=== PATIENT | female | born 1965 | race Caucasian/White ===

== ENCOUNTER 2018-09-22 17:44 | Emergency (ER) | payer MEDICARE, MEDICAID ==
[~2018-09-22] VITALS: Ht 160 cm; Wt 77.1 kg
[~2018-09-22 17:44] MED LIST: CALC625T20 PO; CYCL10TA2 PO; DOCU-109 PO; HYDR-2762 PO; HYDR-971 PO; LEVO137T3 PO; ONDA4TAB12 PO; PANT40TA3 PO; POLY17PO29 PO; TRAZ-86 PO
[2018-09-22 18:15] VITALS: BP 140/90
[2018-09-22] MEDS ORDERED: ONDANSETRON PF 4 MG/2 ML VIAL. IV ONE (18:30)
[2018-09-22] MEDS ORDERED: IV NORMAL SALINE 1000ML BAG 1,000 ML IV ONE (18:30)
[2018-09-22] MEDS ORDERED: IOHEXOL 300 MG/ML 100ML VIAL. IV ONE (18:30)
[2018-09-22] MEDS ORDERED: MORPHINE SULFATE 10 MG/ML VIAL. IV ONE (18:30)
[2018-09-22 18:34] LABS: BASO % 1 % (0-3); EOS # 0.1 x10^3/uL (0.0-0.7); EOS % 2 % (0-3); HEMATOCRIT 40.3 % (36.0-47.0); HEMOGLOBIN 14.1 g/dL (12.0-15.5); LYMPH # 2.5 x10^3/uL (1.0-4.8); LYMPH % 39 % (24-48); MEAN CORPUSCULAR HEMOGLOBIN 33 pg (25-35); MEAN CORPUSCULAR HGB CONC 35 g/dL (31-37); MEAN CORPUSCULAR VOLUME 94 fL (79-100); MONO # 0.5 x10^3/uL (0.0-1.1); MONO % 8 % (0-9); NEUT # 3.2 x10^3uL (1.8-7.7); NEUT % 51 % (31-73); PLATELET COUNT 346 x10^3/uL (140-400); RED BLOOD COUNT 4.29 x10^6/uL (3.50-5.40); RED CELL DISTRIBUTION WIDTH 12.9 % (11.5-14.5); WHITE BLOOD COUNT 6.4 x10^3/uL (4.0-11.0)
[2018-09-22 18:35] LABS: BILIRUBIN,URINE NEGATIVE (NEG); CLARITY,URINE CLEAR; COLOR,URINE YELLOW; NITRITE,URINE NEGATIVE (NEG); PROTEIN,URINE NEGATIVE (NEG-TRACE); UROBILINOGEN,URINE 0.2 mg/dL (0.2 mg/dL)
[2018-09-22 18:41] LABS: BACTERIA,URINE FEW /HPF (0-FEW); RBC,URINE OCC /HPF (0-2); SQUAMOUS EPITHELIAL CELL,UR MOD /LPF; WBC,URINE OCC /HPF (0-4)
[2018-09-22] MEDS ORDERED: CONTRAST GIVEN. MC PRN (18:45)
[2018-09-22 18:46] LABS: CALCIUM 9.2 mg/dL (8.5-10.1); CREATININE 0.7 mg/dL (0.6-1.0); GFR 87.5; POTASSIUM 3.7 mmol/L (3.5-5.1)
[2018-09-22 18:51] LABS: ALBUMIN 3.7 g/dL (3.4-5.0); ALBUMIN/GLOBULIN RATIO 0.8 (1.0-1.7); TOTAL BILIRUBIN 0.2 mg/dL (0.2-1.0); TOTAL PROTEIN 8.6 g/dL (6.4-8.2)
--- NOTE | 2018-09-22 18:53 | PHYS DOC ---
Past Medical History Past Medical History: Cancer, Hypothyroid, Unknown Additional Past Medical Histor: COLORECTAL CA, HYPOTHYROID, spinal stenosis Past Surgical History: Colectomy, Other Additional Past Surgical Histo: COLORECTAL RESECTION, COLOSTOMY Alcohol Use: None Drug Use: None Adult General Chief Complaint Chief Complaint: ABDOMINAL PAIN HPI HPI Patient is a 53 year old female with history of hypothyroidism, colon cancer with colon resection and colostomy, who presents today complaining of 8 out of 10 bilateral upper abdominal pain described as sharp and intermittent for the last 4 days. Patient states most of the pain is around the colostomy. Denies any nausea vomiting. She states her colostomy has normal amount of stool Review of Systems Review of Systems Constitutional: Denies fever or chills [] Eyes: Denies change in visual acuity, redness, or eye pain [] HENT: Denies nasal congestion or sore throat [] Respiratory: Denies cough or shortness of breath [] Cardiovascular: No additional information not addressed in HPI [] GI: Reports abdominal pain, denies nausea, vomiting, bloody stools or diarrhea [ ] : Denies dysuria or hematuria [] Musculoskeletal: Denies back pain or joint pain [] Integument: Denies rash or skin lesions [] Neurologic: Denies headache, focal weakness or sensory changes [] All other systems were reviewed and found to be within normal limits, except as documented in this note. Current Medications Current Medications Current Medications Medications (Trade) Dose Ordered Sig/Sidra Start Time Stop Time Status Last Admin Dose Admin Info (CONTRAST GIVEN -- Rx MONITORING) 1 each PRN DAILY PRN 09/22/18 18:45 09/24/18 18:44 Iohexol (Omnipaque 300 Mg/ml) 75 ml 1X ONCE 09/22/18 18:30 09/22/18 18:31 DC 09/22/18 18:59 75 ML Morphine Sulfate (Morphine Sulfate) 5 mg 1X ONCE 09/22/18 18:30 09/22/18 18:31 DC 09/22/18 18:46 5 MG Ondansetron HCl (Zofran) 4 mg 1X ONCE 09/22/18 18:30 09/22/18 18:31 DC 09/22/18 18:46 4 MG Sodium Chloride 1,000 ml @ 1,000 mls/hr 1X ONCE 09/22/18 18:30 09/22/18 19:29 DC 09/22/18 18:47 1,000 MLS/HR Allergies Allergies Allergies Coded Allergies Type Severity Reaction Last Updated Verified fentanyl Allergy Intermediate HEADACHE 12/11/16 Yes Physical Exam Physical Exam Constitutional: Well developed, well nourished, no acute distress, non-toxic appearance. [] HENT: Normocephalic, atraumatic, bilateral external ears normal, oropharynx moist, no oral exudates, nose normal. [] Eyes: PERRLA, EOMI, conjunctiva normal, no discharge. [] Neck: Normal range of motion, no tenderness, supple, no stridor. [] Cardiovascular:Heart rate regular rhythm, no murmur [] Lungs & Thorax: Bilateral breath sounds clear to auscultation [] Abdomen: Colostomy noted right upper abdomen no stool in the bag. Bowel sounds normal, soft, diffuse tenderness around the colostomy region as well as bilateral upper abdomen, negative Tapia sign to my no right lower quadrant tenderness no masses, no pulsatile masses. [] Skin: Warm, dry, no erythema, no rash. [] Back: No tenderness, no CVA tenderness. [] Extremities: No tenderness, no cyanosis, no clubbing, ROM intact, no edema. [] Neurologic: Alert and oriented X 3, normal motor function, normal sensory function, no focal deficits noted. [] Psychologic: Affect normal, judgement normal, mood normal. [] Current Patient Data Vital Signs Vital Signs Date Time Temp Pulse Resp B/P (MAP) Pulse Ox O2 Delivery O2 Flow Rate FiO2 09/22/18 18:15 98.3 107 18 140/90 (107) 98 Room Air 98.3 Lab Values Laboratory Tests Test 09/22/18 18:10 09/22/18 18:28 Urine Collection Type Unknown Urine Color Yellow Urine Clarity Clear Urine pH 6.0 Urine Specific [place] 1.010 Urine Protein Negative mg/dL (NEG-TRACE) Urine Glucose (UA) Negative mg/dL (NEG) Urine Ketones (Stick) Negative mg/dL (NEG) Urine Blood Trace (NEG) Urine Nitrite Negative (NEG) Urine Bilirubin Negative (NEG) Urine Urobilinogen Dipstick 0.2 mg/dL (0.2 mg/dL) Urine Leukocyte Esterase Negative (NEG) Urine RBC Occ /HPF (0-2) Urine WBC Occ /HPF (0-4) Urine Squamous Epithelial Cells Mod /LPF Urine Bacteria Few /HPF (0-FEW) Urine Mucus Slight /LPF White Blood Count 6.4 x10^3/uL (4.0-11.0) Red Blood Count 4.29 x10^6/uL (3.50-5.40) Hemoglobin 14.1 g/dL (12.0-15.5) Hematocrit 40.3 % (36.0-47.0) Mean Corpuscular Volume 94 fL (79-100) Mean Corpuscular Hemoglobin 33 pg (25-35) Mean Corpuscular Hemoglobin Concent 35 g/dL (31-37) Red Cell Distribution Width 12.9 % (11.5-14.5) Platelet Count 346 x10^3/uL (140-400) Neutrophils (%) (Auto) 51 % (31-73) Lymphocytes (%) (Auto) 39 % (24-48) Monocytes (%) (Auto) 8 % (0-9) Eosinophils (%) (Auto) 2 % (0-3) Basophils (%) (Auto) 1 % (0-3) Neutrophils # (Auto) 3.2 x10^3uL (1.8-7.7) Lymphocytes # (Auto) 2.5 x10^3/uL (1.0-4.8) Monocytes # (Auto) 0.5 x10^3/uL (0.0-1.1) Eosinophils # (Auto) 0.1 x10^3/uL (0.0-0.7) Basophils # (Auto) 0.0 x10^3/uL (0.0-0.2) Sodium Level 135 mmol/L (136-145) L Potassium Level 3.7 mmol/L (3.5-5.1) Chloride Level 98 mmol/L (98-107) Carbon Dioxide Level 27 mmol/L (21-32) Anion Gap 10 (6-14) Blood Urea Nitrogen 6 mg/dL (7-20) L Creatinine 0.7 mg/dL (0.6-1.0) Estimated GFR (Cockcroft-Gault) 87.5 BUN/Creatinine Ratio 9 (6-20) Glucose Level 98 mg/dL (70-99) Calcium Level 9.2 mg/dL (8.5-10.1) Total Bilirubin 0.2 mg/dL (0.2-1.0) Aspartate Amino Transferase (AST) 20 U/L (15-37) Alanine Aminotransferase (ALT) 24 U/L (14-59) Alkaline Phosphatase 87 U/L (46-116) Total Protein 8.6 g/dL (6.4-8.2) H Albumin 3.7 g/dL (3.4-5.0) Albumin/Globulin Ratio 0.8 (1.0-1.7) L Lipase 105 U/L (73-393) Laboratory Tests 09/22/18 18:28 Laboratory Tests 09/22/18 18:28 EKG EKG [] Radiology/Procedures Radiology/Procedures []PROCEDURE: CT ABD PELV W/ IV CONTRST ONLY Examination: CT ABD PELV W/ IV CONTRST ONLY History: abd pain with nausea
Omni 300 75ml, prior sent Comparison/Correlation: 11/18/2016 CT abdomen and pelvis without contrast Findings: Axial images of the abdomen and pelvis were obtained following 75 cc Omnipaque. Sagittal and coronal reformatted images provided. Visualized lung bases are clear. Liver, spleen, pancreas, adrenal glands, and kidneys are normal. Moderate quantity of stool is present in the colon. The descending colon extends to the right upper abdominal midline ostomy site. Circumferential wall thickening of the colon at the ostomy site is present of indeterminate significance. Small amount of herniated omental fat is present. Left adnexal follicle is physiologic in appearance. No inflammatory changes identified about the cecum. Appendix is normal. Scarring involving the low abdominal wall at the upper pelvic level course by previous sites of ostomy is noted. Uterus is identified. Urinary bladder is distended. Bony structures are unremarkable for age. Impression: Moderate quantity of stool in the colon. Upper abdominal ostomy is evident. No definite acute process. Electronically signed by: Juan Jose Cutler MD (09/22/2018 7:34 PM) [facility] DICTATED and SIGNED BY: JUAN JOSE CUTLER MD DATE: 09/22/181923 Course & Med Decision Making Course & Med Decision Making Pertinent Labs and Imaging studies reviewed. (See chart for details) This is a 53-year-old female patient presenting to the ED today with complaints of bilateral upper abdominal pain for 4 days. Patient has history of colon cancer with colon resection and colostomy. Patient's labs are negative for any acute findings including UA. CT of the abdomen and pelvic was negative for any acute findings, noted for constipation. Patient states she has MiraLAX and a laxative at home. Advised to take them, we talked about management of constipation including increasing dietary fiber intake as well as water intake. She is to follow-up with her own PCP in 1-2 weeks. She is provided return precautions and discharged in stable condition. Dragon Disclaimer Dragon Disclaimer This electronic medical record was generated, in whole or in part, using a voice recognition dictation system. Departure Departure Impression: Primary Impression: Abdominal pain Additional Impression: Constipation Disposition: HOME, SELF-CARE Condition: STABLE Referrals: VENUS MONTES MD (PCP) Follow-up next week Patient Instructions: Abdominal Pain, Constipation, Adult Additional Instructions: You were evaluated in the emergency room for abdominal pain and noted to be constipated. Take MiraLAX and laxative tonight. Follow-up with your doctor next week. Come back to the ED at any point symptoms worsen. Consider increasing your dietary fiber intake as well as a water intake. Problem Qualifiers Primary Impression: Abdominal pain Abdominal location: upper abdomen, unspecified Qualified Codes: R10.10 - Upper abdominal pain, unspecified Additional Impression: Constipation Constipation type: unspecified constipation type Qualified Codes: K59.00 - Constipation, unspecified MELINDA MEDINA FOREST RANGER Sep 22, 2018 18:53
--- NOTE | 2018-09-22 19:37 | RAD ---
Examination: CT ABD PELV W/ IV CONTRST ONLY History: abd pain with nausea
Omni 300 75ml, prior sent Comparison/Correlation: 11/18/2016 CT abdomen and pelvis without contrast Findings: Axial images of the abdomen and pelvis were obtained following 75 cc Omnipaque. Sagittal and coronal reformatted images provided. Visualized lung bases are clear. Liver, spleen, pancreas, adrenal glands, and kidneys are normal. Moderate quantity of stool is present in the colon. The descending colon extends to the right upper abdominal midline ostomy site. Circumferential wall thickening of the colon at the ostomy site is present of indeterminate significance. Small amount of herniated omental fat is present. Left adnexal follicle is physiologic in appearance. No inflammatory changes identified about the cecum. Appendix is normal. Scarring involving the low abdominal wall at the upper pelvic level course by previous sites of ostomy is noted. Uterus is identified. Urinary bladder is distended. Bony structures are unremarkable for age. Impression: Moderate quantity of stool in the colon. Upper abdominal ostomy is evident. No definite acute process. Electronically signed by: Juan Jose Olivarez MD (09/22/2018 7:34 PM) [facility]
== END 2018-09-22 19:58 | disposition home or self-care (01) ==
LOC: ER 17:44
DX: K59.00 Constipation, unspecified (principal); R10.11 Right upper quadrant pain; R10.12 Left upper quadrant pain; E03.9 Hypothyroidism, unspecified; Z93.3 Colostomy status; Z88.6 Allergy status to analgesic agent
CPT/HCPCS: 36415; 74177; 80053; 81001; 83690; 85025; 96374; 96375; 99285; J2270; J2405; J7030; Q9967

== ENCOUNTER → 2020-12-25 | Outpatient (CLI) | payer MEDICARE, MEDICAID ==
[~2020-12-25] MED LIST changes: -HYDR-2762 PO; +HYDR-2765 PO; +HYDR-3164 PO; -HYDR-971 PO; -PANT40TA3 PO; +PANT40TA77 PO; +TRAZ-123 PO; -TRAZ-86 PO
--- NOTE | 2020-12-25 13:22 | KCIC ---
EXAMINATION: Magnetic resonance imaging (MRI) of the lumbar spine without contrast 12/25/2020 10:15 AM HISTORY: Midline low back pain TECHNIQUE: Multiplanar multi-weighted MRI of the lumbar spine was performed without intravenous contr ast using the standard lumbar spine protocol. Contrast information: None administered. COMPARISON: None available. FINDINGS: The alignment of the lumbar spine is normal. Vertebral bodies demonstrate normal signal intensity on all sequences. There are no compression fractures. The conus medullaris terminates at the level of L1. The distal spinal cord signal intensity is normal. Intervertebral disks have normal height and signal intensity. There are no annular fissures identified. Limited views of the abdomen and pelvis show no soft tissue abnormality. The aorta is normal. Perineural sheath diverticula are identified a t T12-L1 bilaterally and at L1-L2 on the left. L1-L2: The disc is normal in configuration. There is no facet arthropathy. There is no neuroforaminal stenosis. There is no spinal canal stenosis. L2-L3: The disc is normal in configuration. There is no facet arthropathy. There is no neuroforaminal stenosis. There is no spinal canal stenosis. L3-L4: There is mild disc bulge. Mild facet arthropathy. No neuroforaminal or spinal canal stenosis. L4-L5: There is mild disc bulge asymmetric to the left. Mild facet arthropathy ligamentum flavum info lding. No neuroforaminal or spinal canal stenosis L5-S1: Disc is normal in configuration. Mild to moderate facet arthropathy. Mild right neuroforaminal stenosis. No spinal canal stenosis. IMPRESSION: No significant disc herniation, neuroforaminal or spinal canal stenosis. Electronically signed by: Gilda Chavez MD (12/25/2020 1:20 PM) [id number]
== END ==
LOC: KCIC MRI 10:01
PROVIDERS: ATTEND Nurse Practitioner Family
DX: M47.817 Spondylosis without myelopathy or radiculopathy, lumbosacral region (principal); M48.07 Spinal stenosis, lumbosacral region
CPT/HCPCS: 72148